=== PATIENT | male | born 1995 | race Hispanic/Latino ===

== ENCOUNTER 2023-09-14 00:32 | Emergency (ER) | payer OTHER ==
[~2023-09-14] VITALS: Ht 167.6 cm; Wt 80.3 kg
[2023-09-14] MEDS: IBUPROFEN 800 MG TAB PO STA (01:04)
[2023-09-14] MEDS: TETRACAINE HCL 0.5% 4 ML OPHTH SOLN OP STA (01:04)
[2023-09-14] MEDS: FLUORESCEIN SODIUM 1 STRIP STRIP OP STA (01:05)
[2023-09-14] MEDS: DEXAMETHASONE SOD PHOSPHATE 4 MG/ML 1ML VIAL IM STA (01:28)
[2023-09-14] MEDS: SOLU-MEDROL 125MG VIAL IVP STA (01:28)
[2023-09-14 01:33] LABS: BASOPHILS # (AUTO) 0.02 K/uL (0.00-0.20); BASOPHILS % (AUTO) 0.3 % (0.0-5.0); EOSINOPHILS # (AUTO) 0.03 K/uL (0.00-0.70); EOSINOPHILS % (AUTO) 0.4 % (0.0-8.0); HEMATOCRIT 44.1 % (42-54); IMMATURE GRANULOCYTE ABSOLUTE 0.02 K/uL (0-1); LYMPHOCYTES # (AUTO) 1.6 K/uL (1.0-4.8); LYMPHOCYTES % (AUTO) 19.9 % (21.0-51.0); MEAN CORPUSCULAR HEMOGLOBIN 29.9 pg (27.0-33.0); MEAN CORPUSCULAR HGB CONC 35.1 g/dL (32.0-36.0); MONOCYTES # (AUTO) 0.4 K/uL (0.1-1.0); MONOCYTES % (AUTO) 5.5 % (3.0-13.0); NEUTROPHILS # (AUTO) 5.8 K/uL (1.8-7.7); NEUTROPHILS % (AUTO) 73.6 % (40.0-77.0); PLATELET COUNT (AUTO) 214 K/uL (130-400); RED BLOOD CELL COUNT(AUTO) 5.19 MIL/uL (4.50-6.20); RED CELL DISTRIBUTION WIDTH 12.2 % (11.0-15.5); WHITE BLOOD COUNT (AUTO) 7.8 K/uL (4.8-10.8)
[2023-09-14 01:44] LABS: POTASSIUM 4.5 mmol/L (3.5-5.1)
[2023-09-14] MEDS ORDERED: NEO/5DRO4 OP (02:48)
[2023-09-14] MEDS ORDERED: PRED10TA3 PO (02:48)
[2023-09-14 03:51] VITALS: BP 116/76; PULSE 98; RESP 20; O2SAT 99
== END 2023-09-14 04:00 | disposition home or self-care (01) ==
LOC: EDH 00:32
DX: H10.12 Acute atopic conjunctivitis, left eye (principal)
CPT/HCPCS: 99284; 96374; 80048; 85025; 36415; 96372; J1100; J2919